=== PATIENT | male | born 1940 | race Caucasian/White ===

== ENCOUNTER 2017-03-26 16:03 | Inpatient (IN) | payer MEDICARE ==
--- NOTE | 2017-03-26 17:23 | RAD ---
HISTORY: Left-sided facial droop, history of melanoma COMPARISONS: None TECHNIQUE: Multiple contiguous axial CT scans were obtained of the head without intravenous contrast. FINDINGS: HEMORRHAGE/INFARCT: There is no hemorrhage or acute infarct. MASSES/SHIFT: There is no space-occupying lesion, there is no shift. EXTRA-AXIAL SPACES: There are no extra-axial fluid collections. SULCI AND VENTRICLES: The sulci and ventricles are normal in size and position for the patient's stated age. CEREBRUM: There is hypoattenuation within the right frontal lobe, the pattern is suggestive of vasogenic edema rather than cytotoxic edema. There is patchy hypoattenuation also within the cerebral hemispheres. BRAINSTEM: There are no focal parenchymal abnormalities. CEREBELLUM: There are no focal parenchymal abnormalities. VESSELS: The vessels are grossly normal. PARANASAL SINUSES: The paranasal sinuses are clear. ORBITS: The orbits are unremarkable. BONES AND SOFT TISSUE: No bone or soft tissue abnormalities are noted. OTHER: None IMPRESSION: AREA OF VASOGENIC EDEMA OF THE RIGHT FRONTAL LOBE WITH PATCHY HYPOATTENUATION ELSEWHERE. THE APPEARANCE IS CONCERNING FOR EDEMA FROM UNDERLYING NEOPLASM, INCLUDING METASTATIC MELANOMA GIVEN THE PATIENT HISTORY. THERE IS NO SHIFT. RECOMMEND FURTHER EVALUATION WITH CONTRAST-ENHANCED MRI OF THE BRAIN IN THE NONACUTE SETTING.
[2017-03-26 17:38] LABS: Hematocrit 39 % (42-52); Hemoglobin 13.1 g/dl (14.0-18.0); Mean Corpuscular HGB Conc 34 g/dl (31-36); Mean Corpuscular Hemoglobin 31 pg (27-31); Mean Corpuscular Volume 93 fL (80-94); Mean Platelet Volume 8 um3 (7.4-10.4); Red Blood Count 4.18 10^6/ul (4.0-5.4); Red Cell Distribution Width 14 % (10.5-15); White Blood Count 8.8 10^3/ul (3.5-10.8)
[2017-03-26 18:19] LABS: Troponin I 0.01 ng/mL (<0.04)
[2017-03-26 18:20] LABS: Albumin 3.9 g/dL (3.2-5.2); BUN/Creatinine Ratio 25.8 (8-20); Calcium 8.8 mg/dL (8.6-10.3); EGFR African American 101.1 (>60); EGFR Non-African American 78.6 (>60); Globulin 2.7 g/dL (2-4); Potassium 4.2 mmol/L (3.5-5.0); Total Bilirubin 0.4 mg/dL (0.2-1.0); Total Protein 6.6 g/dL (6.4-8.9)
[2017-03-26 19:06] LABS: TSH (Thyroid Stimulating Horm) 0.93 mcIU/mL (0.34-5.60)
[2017-03-26] MEDS ORDERED: Ondansetron INJ* 2 MG/ML VIAL IV PRN (19:31)
[2017-03-26] MEDS ORDERED: Albuterol 2.5 MG/3 ML NEB.SOL* (0.083%) INH PRN (19:34)
[2017-03-26] MEDS ORDERED: Dexamethasone IV* 4 MG/ML 5 ML VIAL (20 MG) IVPB ONE (19:40)
[2017-03-26] MEDS: Mometasone 220 MCG MDI INH SCH (20:22)
--- NOTE | 2017-03-26 20:28 | RAD ---
HISTORY: Wheezing, cough COMPARISONS: June 06, 2016 VIEWS: 1: frontal portable view of the chest at 7:40 PM FINDINGS: LINES AND TUBES: None. CARDIOMEDIASTINAL SILHOUETTE: The cardiomediastinal silhouette is normal for portable technique. PLEURA: The costophrenic angles are sharp. No pleural abnormalities are noted. LUNG PARENCHYMA: The lungs are clear. ABDOMEN: The upper abdomen is clear. There is no subphrenic gas. BONES AND SOFT TISSUES: No bone or soft tissue abnormalities are noted. IMPRESSION: NO ACTIVE CARDIOPULMONARY DISEASE.
[2017-03-26] MEDS ORDERED: Atorvastatin* 20 MG TAB PO SCH (21:00)
[2017-03-26] MEDS: amLODIPine TAB* 5 MG PO SCH (22:16)
[2017-03-26 23:07] LABS: Urine Bilirubin Negative (Negative); Urine Glucose Negative (Negative); Urine Nitrite Negative (Negative)
[2017-03-27] MEDS: Acetaminophen TAB* 325 MG PO PRN ×5 (00:23→19:16)
[2017-03-27] MEDS ORDERED: LORazepam INJ* 2 MG/ML 1 ML VIAL IV PUSH ONE (03:24)
--- NOTE | 2017-03-27 03:26 | PN ---
Progress Note - Progress Note Date of Service: 03/27/17 Note: Cross cover: Retaining 1000ml on post void bladder scan In past chappell placement has bee difficult. Proceeded directly to kiday catheter with 0.5mg ativan IV as premedication for anxiety
--- NOTE | 2017-03-27 04:05 | HP ---
CC: Dr. Lipscomb; Dr. Xavier * HISTORY AND PHYSICAL: DATE OF ADMISSION: 03/26/17 PRIMARY CARE PROVIDER: Dr. Lipscomb. ATTENDING PHYSICIAN WHILE IN THE HOSPITAL: Roberto Singh MD * (report dictated by Tucker Gr NP) CONSULTING NEUROLOGIST: Dr. Xavier. CHIEF COMPLAINT: 1. Slurred speech. 2. Left-sided facial droop. HISTORY OF PRESENT ILLNESS: Mr. Osorio is a 76-year-old male patient with history of hypertension, depression, hyperlipidemia, asthma, history of melanoma with several excisions in the past and a history of lumbar stenosis, status post laminectomy and lumbar fusion. He comes in to the ER today stating that around 03/25 today, he was at [employer], he noticed that he was having trouble with his speech. 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 It was not until about 2:30 this afternoon when his returned home from a hike, the and the patient's daughter knew that there is something wrong with her father, they noticed the facial droop, they noticed that he seemed to be hesitating with walking, and they noticed that he seemed to be having difficulty with his speech and it appeared to be garbled. They were concerned and then they brought him to the ER. There were no reports of weakness to one side by the patient, no reports of visual disturbances, there are no report of difficulty with swallowing, and no reports of again weakness to the arm or leg. The patient came into the ED, was evaluated, and CT findings were consistent with vasogenic edema from possible neoplasm. So, the hospitalist service was asked to evaluate for admission. PAST MEDICAL HISTORY: Significant for: 1. Hypertension. 2. Depression. 3. Hyperlipidemia. 4. Asthma. 5. History of melanoma. 6. Lumbar stenosis. PAST SURGICAL HISTORY: 1. He has had multiple skin excisions. 2. Laminectomy. 3. He has had a fusion of L4-5. FAMILY HISTORY: His mother had a history of colon cancer. His father at the age of 98. He had CHF. SOCIAL HISTORY: He did smoke a pipe, he quit about 40 years ago, rarely drinks alcohol. Surrogate decision maker is his , Brenna. HOME MEDICATIONS: His home medications according to the list that we obtained include: 1. Norvasc 2.5 mg p.o. twice a day. 2. Spironolactone 50 mg p.o. daily. 3. Flomax 1 tablet p.o. daily. 4. Ventolin 2 puff inhaled, every 4 hours as needed. 5. Flovent 2 puffs inhaled b.i.d. 6. Naproxen 500 mg every 12 hours as needed. 7. Aspirin 325 mg daily. 8. Vitamin C 1000 mg p.o. daily. 9. Crestor 10 mg daily. 10. Cymbalta 60 mg daily. 11. Calcium with vitamin D 1 tablet daily as needed. ALLERGIES TO MEDICATIONS: Include SULFA, TETRACYCLINES, and AUGMENTIN. REVIEW OF SYSTEMS: There is no documented fever. He denied having any significant weight change. There was no double vision. He denied having any ear discharge. There was no rhinorrhea. No sore throat. No thyroid enlargement. Denied having any chest pain. There was no orthopnea, no nocturnal dyspnea. There was no abdominal pain. There was no nausea, no vomiting, no dysuria, no frequency, no seizure, and no loss of consciousness. Review of 14 systems completed, all others negative. PHYSICAL EXAMINATION GENERAL: At this time, Mr. Osorio is a 76-year-old male patient. He appears to be well-nourished, well-developed. He is sitting in the ER stretcher. He does not appear to be in any acute distress. VITAL SIGNS: Blood pressure 147/72, pulse 88, respirations 19, O2 sat 98%, temperature 98.3. HEENT: Head atraumatic. Eyes: Sclerae anicteric, not pale. Throat: Oral mucosa appears to be moist. No oropharyngeal erythema. NECK: Supple. LUNGS: Clear to auscultation bilaterally. No wheezes, rales, or rhonchi. HEART: Sounds S1, S2. Regular rate and rhythm. No murmurs, rubs, or gallops. ABDOMEN: Soft, flat, nontender. Bowel sounds present. EXTREMITIES: Pulses 2+ throughout. He is moving all 4 extremities with 5/5 strength. No peripheral edema. NEUROLOGICAL: He is awake, he is alert, he is oriented x3. His speech to me is somewhat delayed. He does have a left-sided facial droop. He does have a left- sided footdrop and he states this has been chronic for sometime due to his lumbar stenosis. Tjhybq-fu-gffo is intact bilaterally. Altv-ho-zcgz intact bilaterally. His nurse ob are equal. His tongue was deviated to the left as well. He had no other gross focal deficits. SKIN: Intact. DIAGNOSTIC STUDIES/LAB DATA: The labs today revealed a WBC of 8.8, RBC of 4.18 , hemoglobin of 31, hematocrit 39, platelet count of 234, INR was 0.89. His sodium was 136, potassium was 4.2. The chloride was 104, the bicarb was 27. The BUN was 24, the creatinine was 0.93, glucose 111. Lactate 0.9, calcium 8.8 , total bili is 0.4, AST 20, ALT 26, alk-phos 3, troponin 0.01. Albumin of 2.9 , TSH of 0.93. He did have a brain CT obtained today, which revealed area of vasogenic edema of the right frontal lobe with patchy hypoattenuation elsewhere, the appearance is concerning for edema from underlying neoplasm including metastatic melanoma given the patient's history. There is no shift, recommend further evaluation with contrast enhanced MRI of the brain in a non-acute setting. He had an EKG as well. Showed a normal sinus rhythm at the rate of 85, no ST elevations or T- wave inversions were noted, as compared to a previous EKG appears to be similar. Old medical records were reviewed. ASSESSMENT AND PLAN: Mr. Osorio is a 76-year-old male patient coming into the ER today with complaints of troubled speech and facial droop to the left side. We were asked to evaluate for admission. He will be admitted under inpatient status for: 1. Expressive aphasia with left-sided facial droop with focal neural deficits. At this point, I suspect that the patient again may have an underlying neoplasm. I am going to give a 1-time dose of steroid. Dr. Xavier was consulted. The patient will be seen by Dr. Xavier tomorrow. We will get an MRI with and without contrast. We will place the patient on telemetry, holding on aspirin, we will check a lipid panel and A1c and depending on findings of MRI , we may need to consider further scans of CT chest, abdomen, and pelvis and also may need to get an Oncology input. The plan will be to monitor the patient closely with close neuro checks and re-imaging as needed. 2. Hypertension, continue meds as prescribed. 3. Depression. Continue with supportive care. 4. Hyperlipidemia. We will continue with statin therapy. 5. History of asthma with recent bronchitis. I am getting a chest x-ray. He was wheezing on exam. I have ordered p.r.n. nebulizers. 6. Obstructive sleep apnea. Continue his CPAP. 7. History of melanoma. Again at this point, this may be a recurrence of disease, but I am unsure at this point if it is, we will certainly get Oncology involved. 8. DVT prophylaxis: He will be placed on SCD's, I am going to avoid heparin products because of the possible mass. 9. Fluids and nutrition: He can have a heart healthy diet. I am ordering a bedside swallow eval. 10. Code status: Full code. TIME SPENT: Time spent on the admission was 60 minutes, greater than half the time spent [id number]-xu-[id number] with the patient obtaining my history and physical, the other half time was spent going over the plan of care with the patient and implementing plan of care. I did discuss the plan of care with my attending physician, Dr. Singh, he is in agreement. TUCKER GR, CECILIA [id number]/CPS #: [id number]
[2017-03-27 06:41] LABS: Hematocrit 39 % (42-52); Hemoglobin 13.3 g/dl (14.0-18.0); Mean Corpuscular HGB Conc 34 g/dl (31-36); Mean Corpuscular Hemoglobin 32 pg (27-31); Mean Corpuscular Volume 93 fL (80-94); Mean Platelet Volume 9 um3 (7.4-10.4); Red Blood Count 4.22 10^6/ul (4.0-5.4); Red Cell Distribution Width 14 % (10.5-15); White Blood Count 8.4 10^3/ul (3.5-10.8)
[2017-03-27 06:53] LABS: BUN/Creatinine Ratio 21.7 (8-20); Calcium 8.6 mg/dL (8.6-10.3); EGFR African American 102.3 (>60); EGFR Non-African American 79.6 (>60); HDL Cholesterol 66.6 mg/dL; Potassium 4.2 mmol/L (3.5-5.0)
[2017-03-27] MEDS: amLODIPine TAB* 5 MG PO SCH (08:19)
[2017-03-27] MEDS ORDERED: Spironolactone TAB* 25 MG PO SCH (09:00)
[2017-03-27] MEDS ORDERED: Influenza VAC *QUAD* 2017-18* 0.5 ML SYRINGE IM ONE (09:00)
[2017-03-27] MEDS ORDERED: Tamsulosin CAP* 0.4 MG PO SCH (09:00)
[2017-03-27] MEDS ORDERED: DULoxetine DR CAP* 60 MG CAP.DR PO SCH (09:00)
--- NOTE | 2017-03-27 10:26 | PN ---
Subjective Date of Service: 03/27/17 Interval History: Patient seen and examined at bedside. Denies fever, chills, shortness of breath , chest discomfort, N/V/D. Pt complains of discomfort from the urinary catheter and feeling as if he needs to urinate. 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 Pt also reports chest congestion and post-nasal drip. Tele: Sinus rhythm to sinus tachycardia, rate 70-100's. Occasional rate up to 130's. Family History: Unchanged from Admission Social History: Unchanged from Admission Past Medical History: Unchanged from Admission Objective Active Medications: Acetaminophen (Tylenol Tab*) 650 mg PO Q4H PRN Reason: FEVER/PAIN Albuterol (Ventolin 2.5 Mg/3 Ml Neb.Mayra*) 2.5 mg INH Q2H PRN Reason: SOB/ WHEEZING Amlodipine Besylate (Norvasc Tab*) 2.5 mg PO BID [facility] Atorvastatin Calcium (Lipitor*) 20 mg PO BEDTIME [facility] Reason: Protocol Duloxetine HCl (Cymbalta Cap*) 60 mg PO DAILY [facility] Levetiracetam 1,000 mg/ Sodium (Chloride) 110 mls @ 440 mls/hr IVPB BEDTIME [facility] Levetiracetam 500 mg/ Sodium (Chloride) 105 mls @ 420 mls/hr IVPB QAM [facility] Mometasone Furoate (Asmanex 220 Mcg Mdi *) 1 puff INH QPM [facility] Ondansetron HCl (Zofran Inj*) 4 mg IV Q6H PRN Reason: NAUSEA Spironolactone (Aldactone Tab*) 50 mg PO DAILY [facility] Tamsulosin HCl (Flomax Cap*) 0.4 mg PO DAILY [facility] Vital Signs 03/26/17 03/26/17 03/26/17 20:20 22:58 23:29 Temperature 98.1 F 98.1 F Pulse Rate 90 81 83 Respiratory 16 16 16 Rate Blood Pressure 145/85 137/72 (mmHg) O2 Sat by Pulse 99 99 96 Oximetry 03/27/17 03/27/17 03/27/17 03:20 03:39 04:39 Temperature 98.8 F Pulse Rate 102 Respiratory 16 16 16 Rate Blood Pressure 143/78 (mmHg) O2 Sat by Pulse 94 Oximetry 03/27/17 03/27/1717 06:10 06:26 06:43 Temperature 97.8 F 98.4 F 98.5 F Pulse Rate 120 107 103 Respiratory 16 16 16 Rate Blood Pressure 111/81 152/92 135/86 (mmHg) O2 Sat by Pulse 99 94 95 Oximetry 03/27/17 03/27/17 07:07 07:11 Temperature 98.3 F 98.1 F Pulse Rate 103 101 Respiratory 16 20 Rate Blood Pressure 128/93 133/87 (mmHg) O2 Sat by Pulse 95 95 Oximetry Oxygen Devices in Use Now: None Appearance: NAD, laying in bed Respiratory: Symmetrical Chest Expansion and Respiratory Effort, Clear to Auscultation Cardiovascular: NL Sounds; No Murmurs; No JVD, RRR Abdominal: NL Sounds; No Tenderness; No Distention Extremities: No Edema Skin: No Rash or Ulcers Neurological: Alert and Oriented x 3, - - Left sided facial droop, heel little to knee intact bilateral but slow on the left, finger to nose intact bilateral but slow on the left, 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 Lines/Tubes/Other Access: Clean, Dry and Intact Peripheral IV - site benign Nutrition: Taking PO's Result Diagrams: 03/27/17 06:22 03/27/17 06:23 Assess/Plan/Problems-Billing Assessment: Mr. Osorio is a 76 yo male with PMH significant for HTN, depression, HLD, asthma, melonoma, and lumbar stenosis who presented to the emergency room iwth complains of expressive aphasia and a left facial droop. - Patient Problems (1) Expressive aphasia Code(s): R47.01 - APHASIA SNOMED Code(s): 552146237 Comment: - With left-sided facial droop and left sided weakness - Suspect underyling neoplasm - MRI pending - Continue neurological checks - Neurology consult pending (2) HTN (hypertension) Code(s): I10 - ESSENTIAL (PRIMARY) HYPERTENSION SNOMED Code(s): 70660306 Comment: - Mostly normotensive - Continue norvasc and spironolactone (3) Depression Code(s): F32.9 - MAJOR DEPRESSIVE DISORDER, SINGLE EPISODE, UNSPECIFIED SNOMED Code(s): 21419882 Comment: - Supportive care (4) HLD (hyperlipidemia) Code(s): E78.5 - HYPERLIPIDEMIA, UNSPECIFIED SNOMED Code(s): 11717462 Comment: - Continue statin (5) Asthma Code(s): J45.909 - UNSPECIFIED ASTHMA, UNCOMPLICATED SNOMED Code(s): 524005833 Comment: - Chest xray WNL - Albuterol prn (6) LINDA (obstructive sleep apnea) Code(s): G47.33 - OBSTRUCTIVE SLEEP APNEA (ADULT) (PEDIATRIC) SNOMED Code(s): 15296269 Comment: - Continue CPAP (7) Melanoma Code(s): C43.9 - MALIGNANT MELANOMA OF SKIN, UNSPECIFIED SNOMED Code(s): 289460838 (8) DVT prophylaxis Code(s): UPX9566 - SNOMED Code(s): 175730570 Comment: - SCDs - Avoid chemical DVT prophylaxis in the setting of a possible brain mass (9) Full code status Code(s): Z78.9 - OTHER SPECIFIED HEALTH STATUS SNOMED Code(s): 536293576 Status and Disposition: Inpatient. Discharge to home when medically stable.
--- NOTE | 2017-03-27 10:41 | ED ---
Homa Chou SooYoung, scribed for Ricky Matos MD on 03/26/17 at 1646 . 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 Sx include L-sided facial droop, slurred speech. Denies difficulty finding words, dizziness, lightheadedness, visual changes. Pt states he just "didn't feel right." He notes recent sinus infection, bronchitis. He finished the course of ABX. R-hand dominant. Pt is taking a HTN medicaiton, not taking a blood thinner. PCP is Dr. Lipscomb. - History of Current Complaint Chief Complaint: EDNeurologicalDeficit Stated Complaint: STROKE LIKE SYMPTOMS Time Seen by Provider: 03/26/17 16:33 Hx Obtained From: Patient, Family/Toll Line Inspector - Onset/Duration: Started hours ago, Still Present Timing: Constant Onset Severity: Mild Current Severity: Mild Pain Intensity: 0 Pain Scale Used: 0-10 Numeric Associated Signs and Symptoms: Positive: Impaired Speech. Negative: Visual Changes, Dizziness, Lightheadness - Allergy/Home Medications Allergies/Adverse Reactions: Allergies Allergy/AdvReac Type Severity Reaction Status Date / Time Sulfa Drugs Allergy Severe Rash Verified 02/08/17 14:55 Tetracyclines & Related Allergy Severe See Comment Verified 02/08/17 14:55 Amoxicillin [From Augmentin] AdvReac GI Upset Verified 02/08/17 14:55 Clavulanic Acid AdvReac GI Upset Verified 02/08/17 14:55 [From Augmentin] PMH/Surg Hx/FS Hx/Imm Hx Previously Healthy: No Endocrine/Hematology History: Denies: Hx Diabetes Cardiovascular History: Reports: Hx Hypertension - ON MEDS Denies: Hx Pacemaker/ICD Respiratory History: Reports: Hx Asthma History: Denies: Hx Dialysis, Hx Renal Disease Musculoskeletal History: Reports: Hx Arthritis, Hx Back Problems Sensory History: Reports: Hx Cataracts - Both eyes, Hx Contacts or Glasses Denies: Hx Hearing Aid Opthamlomology History: Reports: Hx Cataracts - Both eyes, Hx Contacts or Glasses Neurological History: Reports: Other Neuro Impairments/Disorders - PAIN CLINIC PT Psychiatric History: Denies: Hx Panic Disorder - Cancer History Cancer Type, Location and Year: melanoma x 3; 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 LAMINECTOMY L4/L5 03/20/15 Infectious Disease History: Yes Infectious Disease History: Denies: History Other Infectious Disease, Traveled Outside the [place] in Last 30 Days - Family History Known Family History: Positive: Hypertension Family History: FHx of depression - Social History Occupation: Retired Lives: With Family Alcohol Use: Weekly Alcohol Amount: 4-5 drinks per week Hx Substance Use: No Substance Use Type: Reports: None Substance Use Comment - Amount & Last Used: vicodin Hx Tobacco Use: No Smoking Status (MU): Never Smoked Tobacco Type: Pipe Review of Systems Negative: Fever Eyes: Other - neg: visual changes Neurological: Other - pos: L-sided facial droop; neg: dizziness, lightheadedness , difficulty finding words Positive: Slurred Speech All Other Systems Reviewed And Are Negative: Yes Physical Exam Triage Information Reviewed: Yes Vital Signs On Initial Exam: Initial Vitals Temp Pulse Resp BP Pulse Ox 98.3 F 88 19 147/73 98 03/26/17 16:13 03/26/17 16:13 03/26/17 16:13 03/26/17 16:13 03/26/17 16:13 Vital Signs Reviewed: Yes Appearance: Positive: Well-Appearing, No Pain Distress Skin: Positive: Warm, Skin Color Reflects Adequate Perfusion, Dry Head/Face: Positive: Normal Head/Face Inspection Eyes: Positive: Normal ENT: Positive: Normal ENT inspection Neck: Positive: Supple, Nontender Respiratory/Lung Sounds: Positive: Clear to Auscultation, Breath Sounds Present Cardiovascular: Positive: RRR Abdomen Description: Positive: Nontender, Soft Bowel Sounds: Positive: Present Musculoskeletal: Positive: Normal Neurological: Positive: Sensory/Motor Intact, Alert, Oriented to Person Place, Time, CN Intact II-III, Reflexes Intact, Facial Droop - lower facial droop, forehead is spared; Psychiatric: Positive: Normal, Affect/Mood Appropriate Diagnostics - Vital Signs Vital Signs Temp Pulse Resp BP Pulse Ox 03/26/17 16:13 98.3 F 88 19 147/73 98 - Laboratory Lab Results: Lab Results 03/26/17 03/26/17 03/26/17 Range/Units 17:30 17:30 17:30 WBC 8.8 (3.5-10.8) 10^3/ul RBC 4.18 (4.0-5.4) 10^6/ul Hgb 13.1 L (14.0-18.0) g/dl Hct 39 L (42-52) % MCV 93 (80-94) fL MCH 31 (27-31) pg MCHC 34 (31-36) g/dl RDW 14 (10.5-15) % Plt Count 234 (150-450) 10^3/ul MPV 8 (7.4-10.4) um3 Neut % (Auto) 64.0 (38-83) % Lymph % (Auto) 24.8 L (25-47) % Searcy % (Auto) 8.9 (1-9) % Eos % (Auto) 1.6 (0-6) % Baso % (Auto) 0.7 (0-2) % Absolute Neuts (auto) 5.7 (1.5-7.7) 10^3/ul Absolute Lymphs (auto) 2.2 (1.0-4.8) 10^3/ul Absolute Monos (auto) 0.8 (0-0.8) 10^3/ul Absolute Eos (auto) 0.1 (0-0.6) 10^3/ul Absolute Basos (auto) 0.1 (0-0.2) 10^3/ul Absolute Nucleated RBC 0 10^3/ul Nucleated RBC % 0 INR (Anticoag Therapy) 0.89 (0.89-1.11) Sodium 136 (133-145) mmol/L Potassium 4.2 (3.5-5.0) mmol/L Chloride 104 (101-111) mmol/L Carbon Dioxide 27 (22-32) mmol/L Anion Gap 5 (2-11) mmol/L BUN 24 (6-24) mg/dL Creatinine 0.93 (0.67-1.17) mg/dL Est GFR ( Amer) 101.1 (>60) Est GFR (Non-Af Amer) 78.6 (>60) BUN/Creatinine Ratio 25.8 H (8-20) Glucose 111 H (70-100) mg/dL Lactic Acid (0.5-2.0) mmol/L Calcium 8.8 (8.6-10.3) mg/dL Total Bilirubin 0.40 (0.2-1.0) mg/dL AST 20 (13-39) U/L ALT 26 (7-52) U/L Alkaline Phosphatase 63 (34-104) U/L Troponin I 0.01 (<0.04) ng/mL Total Protein 6.6 (6.4-8.9) g/dL Albumin 3.9 (3.2-5.2) g/dL Globulin 2.7 (2-4) g/dL Albumin/Globulin Ratio 1.4 (1-3) TSH 0.93 (0.34-5.60) mcIU/mL 03/26/17 Range/Units 17:30 WBC (3.5-10.8) 10^3/ul RBC (4.0-5.4) 10^6/ul Hgb (14.0-18.0) g/dl Hct (42-52) % MCV (80-94) fL MCH (27-31) pg MCHC (31-36) g/dl RDW (10.5-15) % Plt Count (150-450) 10^3/ul MPV (7.4-10.4) um3 Neut % (Auto) (38-83) % Lymph % (Auto) (25-47) % Searcy % (Auto) (1-9) % Eos % (Auto) (0-6) % Baso % (Auto) (0-2) % Absolute Neuts (auto) (1.5-7.7) 10^3/ul Absolute Lymphs (auto) (1.0-4.8) 10^3/ul Absolute Monos (auto) (0-0.8) 10^3/ul Absolute Eos (auto) (0-0.6) 10^3/ul Absolute Basos (auto) (0-0.2) 10^3/ul Absolute Nucleated RBC 10^3/ul Nucleated RBC % INR (Anticoag Therapy) (0.89-1.11) Sodium (133-145) mmol/L Potassium (3.5-5.0) mmol/L Chloride (101-111) mmol/L Carbon Dioxide (22-32) mmol/L Anion Gap (2-11) mmol/L BUN (6-24) mg/dL Creatinine (0.67-1.17) mg/dL Est GFR ( Amer) (>60) Est GFR (Non-Af Amer) (>60) BUN/Creatinine Ratio (8-20) Glucose (70-100) mg/dL Lactic Acid 0.9 (0.5-2.0) mmol/L Calcium (8.6-10.3) mg/dL Total Bilirubin (0.2-1.0) mg/dL AST (13-39) U/L ALT (7-52) U/L Alkaline Phosphatase (34-104) U/L Troponin I (<0.04) ng/mL Total Protein (6.4-8.9) g/dL Albumin (3.2-5.2) g/dL Globulin (2-4) g/dL Albumin/Globulin Ratio (1-3) TSH (0.34-5.60) mcIU/mL Result Diagrams: 03/27/17 06:22 03/27/17 06:23 Lab Statement: Any lab studies that have been ordered have been reviewed, and results considered in the medical decision making process. - CT BRAIN CT CT Interpretation: Positive (See Comments) - IMPRESSION: AREA OF VASOGENIC EDEMA OF THE RIGHT FRONTAL LOBE WITH PATCHY HYPOATTENUATION ELSEWHERE. THE APPEARANCE IS CONCERNING FOR EDEMA FROM UNDERLYING NEOPLASM, INCLUDING METASTATIC MELANOMA GIVEN THE PATIENT HISTORY. THERE IS NO SHIFT. RECOMMEND FURTHER EVALUATION WITH CONTRAST-ENHANCED MRI OF THE BRAIN IN THE NONACUTE SETTING. ED physician has reviewed this radiology report and agrees. 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 Non-Paretic Hand: Both Correctly Best Gaze (Only Horizontal Eye Movement): Normal Visual Field Testing: No Visual Loss Facial Paresis-Pt to Smile & Close Eyes or Grimace Symmetry: Minor Paralysis Motor Function - Right Arm: No Drift-Holds 10 Seconds Motor Function - Left Arm: No Drift-Holds 10 Seconds Motor Function - Right Leg: No Drift-Holds 10 Seconds Motor Function - Left Leg: No Drift-Holds 10 Seconds Limb Ataxia-Must be out of Proportion to Weakness Present: Absent Sensory (Use Pinprick to Test Arms/Legs/Trunk/Face): Normal Best Language (Describe Picture, Name Items): No Aphasia Dysarthria (Read Several Words): Normal Extinction and Inattention: No Abnormality Total Score: 1 Course/Dx - Course Course Of Treatment: Mr. 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 He presented with clear speech, a left lower facial droop and slight dysmetria on the left. He was found to have vasogenic edema on CT and admitted to the hospitalist's service. - Diagnoses Provider Diagnoses: Vasogenic cerebral edema - Physician Notifications Discussed Care Of Patient With: Karen Castillo - hospitalist Time Discussed With Above Provider: 18:00 Instructed by Provider To: Admit As Inpatient Discharge - Discharge Plan Condition: Stable Disposition: ADMITTED TO [facility] The documentation as recorded by the Homa stubbs SooYoung accurately reflects the service I personally performed and the decisions made by me, Ricky Matos MD.
[2017-03-27] MEDS ORDERED: GuaiFENesin DM* 5 ML UDC PO PRN (10:51)
[2017-03-27] MEDS ORDERED: Gadoteridol* (CONTRAST) 279.3 MG/ML 10 ML IV ONE (11:41)
--- NOTE | 2017-03-27 12:20 | RAD ---
HISTORY: Left-sided weakness, vasogenic edema COMPARISONS: CT dated March 26, 2017 TECHNIQUE: The following sequences were obtained of the head: Sagittal T1-weighted images, axial T2-weighted images, axial FLAIR images, axial susceptibility weighted images, axial T1-weighted images. Additionally, axial diffusion-weighted images were obtained with calculated apparent diffusion coefficients. FINDINGS: The study is limited by patient motion artifact. HEMORRHAGE/INFARCT: There is no hemorrhage or acute infarct. MASSES/SHIFT: There is no mass or shift. EXTRA-AXIAL SPACES/MENINGES: There are no extra-axial fluid collections. SULCI AND VENTRICLES: The sulci and ventricles are normal in size and position for the patient's stated age. CEREBRUM: There is a pattern of vasogenic edema involving the right superior frontal gyrus, middle frontal gyrus, inferior frontal gyrus, and frontal operculum, measuring approximately 5 x 4 x 4 cm in size. There is no appreciable associated enhancement or discrete identifiable mass. There is no restricted diffusion. Elsewhere, there is mild elevated T2/FLAIR signal in the periventricular and subcortical white matter BRAINSTEM: There are no focal parenchymal abnormalities. CEREBELLUM: There are no focal parenchymal abnormalities. The cerebellar tonsils are normal in size and position. SELLA: The sella is normal. PINEAL: The pineal region is clear. CP ANGLE/TEMPORAL BONES: The labyrinthine structures are grossly normal. VESSELS: Normal flow-voids are noted within the visualized vertebral vasculature. DIFFUSION ABNORMALITIES: There are no diffusion abnormalities. PARANASAL SINUSES/MASTOIDS: The paranasal sinuses are clear. ORBITS: The orbits are unremarkable. BONES AND SOFT TISSUE: No bone or soft tissue abnormalities are noted. OTHER: None IMPRESSION: 1. THERE IS A PATTERN OF VASOGENIC EDEMA OF THE RIGHT FRONTAL LOBE CORRESPONDING TO THE FINDINGS NOTED ON CT. THERE IS NO ASSOCIATED ABNORMAL ENHANCEMENT OR DISCRETE IDENTIFIABLE MASS. THE DIFFERENTIAL INCLUDES A LOW-ATTENUATION INTERMEDIATE GRADE GLIOMA. THE DIFFERENTIAL ALSO INCLUDES EARLY CEREBRITIS OR CEREBRITIS IN THE SETTING OF IMMUNOSUPPRESSION. VASCULITIS IS ALSO WITHIN THE DIFFERENTIAL. 2. THERE IS NO RESTRICTED DIFFUSION TO SUGGEST ACUTE INFARCT.
[2017-03-27] MEDS: Lidocaine 2% JELLY* 6 ML JELLY TOPICAL PRN ×2 (13:41→17:57)
[2017-03-27] MEDS ORDERED: Iohexol 350* (CONTRAST) 500 ML MDV IV ONE (13:47)
[2017-03-27] MEDS ORDERED: ACYCLOVIR IVPB SCH (16:00)
[2017-03-27] MEDS ORDERED: NS 0.9% IVPB SCH (16:00)
--- NOTE | 2017-03-27 16:06 | RAD ---
CPT II Codes: 3100F INDICATION: Visual disturbance COMPARISON: None TECHNIQUE: Multiple nicholas scale, color and doppler tracings of the common, internal and external carotid and vertebral arteries were obtained. Stenosis estimations reflect velocity criteria that have been correlated to angiographic stenosis calculations based on the distal internal carotid diameter. Right carotid: There is no significant plaque within the right carotid bulb. The peak systolic velocity in the proximal right internal carotid artery is 60 cm/s and the maximum end-diastolic velocity is 22 cm/s. The peak systolic velocity in the distal common carotid artery is 92 cm/s and the maximum end-diastolic velocity is 24 cm/s. The internal to common carotid ratio is 0.66. This would be consistent with a less than 50% stenosis. Left carotid: There is mild, partially calcified plaque within the left carotid bulb. The peak systolic velocity in the proximal right internal carotid artery is 82 cm/s and the maximum end-diastolic velocity is 29 cm/s. The peak systolic velocity in the distal common carotid artery is 80 cm/s and the maximum end-diastolic velocity is 25 cm/s. The internal to common carotid ratio is 1.02. This would be consistent with a less than 50% stenosis. Vertebrals: There is antegrade flow in both vertebral arteries. IMPRESSION: There is no sonographic evidence of hemodynamically significant stenosis in the bilateral carotid arteries.
[2017-03-27 16:17] LABS: C Reactive Protein 2.85 mg/L (< 5.00)
[2017-03-27] MEDS: Mometasone 220 MCG MDI INH SCH (18:59)
--- NOTE | 2017-03-27 20:32 | TRS ---
CC: Dr. Michael Xavier; Dr. Madhu Lipscomb * TRANSFER SUMMARY: DATE OF ADMISSION: 03/26/17 DATE OF TRANSFER: 03/27/17 to [facility]. ATTENDING PHYSICIAN: Dr. Karen Castillo * (dictated by Marjan Tenorio NP) PRIMARY CARE PROVIDER: Dr. Madhu Lipscomb. PRIMARY DIAGNOSES: 1. Vasogenic edema of the right frontal lobe concerning for neoplasm versus cerebritis. 2. Left-sided weakness and left facial droop. SECONDARY DIAGNOSES: 1. Hypertension. 2. Depression. 3. Hyperlipidemia. 4. Asthma. 5. Melanoma. 6. Lumbar stenosis. CONSULTATIONS WHILE IN THE HOSPITAL: Dr. Michael Xavier with Neurology. STUDIES WHILE IN THE HOSPITAL: 1. Brain CT on 03/26/17. Radiologist's impression: Area of vasogenic edema of the right frontal lobe with patchy hypoattenuation elsewhere. The appearance is concerning for edema from underlying neoplasm, including metastatic melanoma given the patient's history. There is no shift. Recommend further evaluation with contrast-enhanced MRI of the brain in the nonacute setting. 2. Chest x-ray from 03/26/17. Radiologist's impression: No active cardiopulmonary disease. 3. Brain MRI from 03/27/17. Radiologist's impression: There is a pattern of vasogenic edema of the right frontal lobe corresponding to the findings noted on CT. There is no associated abnormal enhancement or discrete identifiable mass. The differential includes a low-attenuation, intermittent-grade glioma. The differential also includes early cerebritis or cerebritis in the setting of immunosuppression. Vasculitis is also within the differential. There is no restricted diffusion to suggest acute infarct. 4. Bilateral carotid Doppler ultrasound on 03/27/17. Radiologist's impression : There is no sonographic evidence of hemodynamically significant stenosis in the bilateral carotid arteries. HOSPITAL MEDICATIONS: 1. Acetaminophen 650 mg oral every 4 hours as needed for fever or pain. 2. Acyclovir 730 mg IV every 8 hours. 3. Albuterol 2.5 mg inhalation every 2 hours as needed for shortness of breath or wheeze. 4. Norvasc 2.5 mg oral twice daily. 5. Atorvastatin 20 mg oral daily at bedtime. 6. Cymbalta 60 mg oral daily. 7. Robitussin DM 5 mL oral every 6 hours as needed for cough. 8. Keppra 500 mg IV every a.m. 9. Keppra 1000 mg IV at bedtime. 10. Lidocaine 2% jelly apply topical 3 times daily as needed to the meatus for pain. 11. Asmanex 220 mcg MDI 1 puff inhalation every evening. 12. Zofran 4 mg IV every 6 hours as needed for nausea, vomiting. 13. Spironolactone 50 mg oral daily. 14. Tamsulosin 0.4 mg oral daily. Home medications include: 1. Cymbalta 60 mg oral daily. 2. Calcium carbonate/vitamin D 1 tablet oral daily. 3. Aspirin 325 mg oral daily. 4. Vitamin C 1000 mg oral daily. 5. Rosuvastatin 10 mg oral daily at bedtime. 6. Naproxen 500 mg oral every 12 hours as needed for pain. 7. Flovent HFA 44 mcg 2 puffs inhalation twice daily. 8. Albuterol HFA inhaler 2 puffs inhalation every 4 hours as needed for shortness of breath or wheeze. 9. Tamsulosin 0.4 mg oral daily. 10. Spironolactone 50 mg oral daily. 11. Norvasc 2.5 mg oral twice daily. HISTORY OF PRESENT ILLNESS/HOSPITAL COURSE: Mr. Osorio is a 76-year-old male with past medical history significant for hypertension, depression, hyperlipidemia, asthma, history of melanoma with several excisions, and a history of lumbar stenosis, status post laminectomy and lumbar fusion, with baseline left foot drop, who presented to the emergency room after noticing trouble with his speech around 9:30 a.m. while he was at judaism. The patient felt as though his speech was delayed and that he had a slur although nobody in his judaism group had pointed this out to him, so he ignored it. Approximately 2 :30 p.m., the patient's returned home from a hike, and the patient's and daughter noted a left-sided facial droop and noted that he was hesitating with walking and having difficulty with his speech as it appeared to be garbled. Due to concern, they brought the patient to the emergency room for further evaluation. While in the emergency room, the patient had no focal one-sided weakness or visual disturbances. There were no reported difficulties with swallowing. The patient was evaluated in the emergency room. He had a CT, with findings consistent with vasogenic edema and a possible neoplasm. He had labs, were fairly unremarkable and the hospitalist were asked to evaluate the patient for admission. While in the hospital, the patient developed left-sided weakness in addition to his left-sided facial droop. He was seen in consultation by Dr. Xavier with Neurology. He also had MRI of his brain showing vasogenic edema of the right frontal lobe with no associated abnormal enhancement or discrete identifiable mass. It was felt the patient could possibly have intermediate-grade glioma, cerebritis, or event vasculitis. Dr. Smith from Neurosurgery was contacted by Neurology for possible brain biopsy and Dr. Smith felt that this could not be done here. Dr. Xavier contacted Dr. Horner at [facility] and the plan was for the patient to go to [facility] once the bed was available later today. It was decided to hold off on any further testing such as lumbar puncture and that they would complete further testing once he arrived at the facility. The patient did have a carotid Doppler showing no significant stenosis. He has multiple tests pending at this time for an LESA, Lyme disease serology, sed rate. The patient was prophylactically started on acyclovir in the event that this is a herpes simplex. The patient was monitored on telemetry. He was noted to be in a sinus rhythm to sinus tachycardia with rate in the 70s to 100s. Occasionally, he did get tachycardia up into the 130s. For now, we are holding on steroids, although he did receive 1 dose yesterday at admission. Mr. Osorio is stable for transfer to [facility] today when a bed is available. Vital signs are as follows: Temperature 98.1, heart rate 101 , respiratory rate 20, O2 sat 95% on room air, blood pressure 113/87. DISCHARGE PLAN: Mr. Osorio will be transferred to [facility] once the bed is available. This is a summarized report of a complex medical history and hospital stay. For further details, please see the entire medical record. TIME SPENT: Time for this transfer was approximately 50 minutes, greater than half of that was spent with the patient's and himself discussing the transfer plans and instructions. CONDITION ON TRANSFER: Fair. MARJAN TENORIO, SWITCHMAN SUPERVISOR [id number]/[facility] [place] #: [id number] ERUM
[2017-03-27 21:16] VITALS: BP 140/74
--- NOTE | 2017-03-28 04:26 | CONS ---
CONSULTATION REPORT: DATE OF CONSULT/DICTATION: 03/27/17 PATIENT OF: Dr. Langley and Dr. Lipscomb HISTORY OF PRESENT ILLNESS: This is a 76-year-old right handed man who has been always been right handed whom I am asked to evaluate for word-finding difficulty, left sided facial droop, now with left-sided weakness. He had been in normal neurological health up until yesterday, he was at a wedding when his speech felt a little bit off and nobody commented on it and his who spoke to him briefly at noon did not notice anything wrong, but this was brief by the time she saw him again at 2 or 3, he speech was clearly affected and she feels like may have gotten worse she feels like she would have noticed the speech problems even in brief conversation if they had existed to that degree at noon. He had some left facial weakness and he was brought into the emergency room last evening and is admitted. Since then, he has developed some left arm and leg weakness, although he can still move them with power against gravity. 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 He has never been left handed, but his speech is not only slurred, but he has some word-finding difficulties. He has had no starring spells or seizures. He has had no fevers, headache, visual symptoms. PAST MEDICAL HISTORY: Significant for hypertension, depression, hyperlipidemia , asthma, history of melanoma, and lumbar stenosis. PAST SURGICAL HISTORY: He has had multiple skin excisions, he has had laminectomy and fusion at the L4-5. MEDICATIONS ON ADMISSION: Include: 1. Norvasc 2.5 twice a day. 2. Spironolactone 50 mg daily. 3. Flomax 1 tab daily. 4. Ventolin 2 puffs inhaler q.4 hours as needed. 5. Flovent 2 puffs b.i.d. 6. Naprosyn 500 q.12 hours. 7. Aspirin 325. 8. Crestor 10 mg daily. 9. Cymbalta 60 mg daily. ALLERGIES: He is allergic to medicines including SULFA, TETRACYCLINES and AUGMENTIN. FAMILY HISTORY: His mother has a history of colon cancer. His father at 98 with congestive heart failure. SOCIAL HISTORY: He did smoke a pipe, but quit 40 years ago and he rarely drinks alcohol. REVIEW OF SYSTEMS: He has had no fever, no weight change, no double vision. No abdominal pain he has denied any numbness. PHYSICAL EXAM: Temperature 98.1, pulse 107, respiration is 20, blood pressure 133/87. He is alert and oriented x3. His speech is hesitant with some word- finding difficulty, but he can still speak in sentences. He has mild left facial weakness. He also has some left visual neglect on the left side, although he can see large objects, he has some extinction. Motor exam revealed normal tone. Strength on the right side was full, on the left side was right 4/ 5. Toes equivocal on the left, downgoing on the right. Reflexes were 1 and equal. Sensation is intact to light touch. Chest: Clear. Cardiovascular: Regular rate and rhythm. Abdomen: Soft with positive bowel sounds. DIAGNOSTIC STUDIES/LAB DATA: I reviewed his MRI scan and then reviewed it with his and I reviewed his scan last night and discussed with Dr. Gr. There is probable vasogenic edema in his right frontotemporal area on MRI scan, also seen on his CT scan. There was no enhancement with contrast and there was some minor white matter changes elsewhere, most likely secondary to small vessel ischemic disease with other changes. His chest x-ray was normal. Labs include white count of 8.4, hematocrit 39, platelets 235. He had normal CMP other than a glucose of 187. BUN and creatinine ratio 12.7, LDL was 109. TSH 0.93. UA was negative. IMPRESSION: I discussed with Kamron and his that he has an area on his MRI scan that is most likely the cause of his left hemiparesis. The fact that he has speech problems as well, suggested either he has speech in right hemisphere or that this is a multifocal problem. This could be as Dr. Whitaker mentions a low-grade glioma that is not enhancing. I am concerned that this could be some sort of cerebritis and I will have phone call on to Dr. Smith. I will be speaking to his primary hospitalist shortly. He has just eaten, so he can not get any major procedures right now, but I think it would be safe for him most likely to have a spinal tap and I would to do looking for inflammation and possible things such herpes. He should have LESA, Lyme titers, rheumatoid factor sent as well as sed rate, and I will send off herpes PCR. I will discuss with his primary, but we may want to cover him with acyclovir pending his workup and if we do not find anything on spinal tap, or Dr. Smith feels spinal tap cannot safely be done, then he may need a biopsy to get a diagnosis, especially since there has been in progression since yesterday. Thank you for sharing his case. [id number]/[facility] #: [id number] ERUM
== END 2017-03-27 19:20 | disposition short-term general hospital (02) | DRG 81 ==
LOC: ED 16:03 → MEDTELE 19:26
PROVIDERS: ADMIT Internal Medicine; ATTEND Internal Medicine
DX: G93.6 Cerebral edema (principal); G81.94 Hemiplegia, unspecified affecting left nondominant side; R47.01 Aphasia; I10 Essential (primary) hypertension; R53.1 Weakness; F32.9 Major depressive disorder, single episode, unspecified; E78.5 Hyperlipidemia, unspecified; J45.909 Unspecified asthma, uncomplicated; M48.061 Spinal stenosis, lumbar region without neurogenic claudication; Z85.820 Personal history of malignant melanoma of skin; Z80.0 Family history of malignant neoplasm of digestive organs; Z82.5 Family history of asthma and other chronic lower respiratory diseases; Z87.891 Personal history of nicotine dependence; Z79.82 Long term (current) use of aspirin; Z79.899 Other long term (current) drug therapy; Z88.1 Allergy status to other antibiotic agents; Z88.2 Allergy status to sulfonamides; Z88.8 Allergy status to other drugs, medicaments and biological substances; R29.810 Facial weakness; G47.33 Obstructive sleep apnea (adult) (pediatric)
CPT/HCPCS: 36415; 70450; 70553; 71010; 80048; 80053; 80061; 81003; 83036; 83605; 84443; 84484; 85025; 85610; 85652; 86038; 86140; 86618; 90686; 93005; 93880; 94640; A9270-GY; A9579; J0133; J1100; J2060